=== PATIENT | female | born 1980 | race Caucasian/White ===

== ENCOUNTER 2020-08-11 18:37 | Emergency (ER) | payer MEDICAID, SELFPAY ==
[2020-08-11 18:38] VITALS: BP 125/85; PULSE 119; RESP 16; TEMP 36.7; O2SAT 99; BMI 19.0
--- NOTE | 2020-08-11 19:43 | CT_ITS ---
PROCEDURE: CT ABDOMEN PELVIS W CON CLINICAL INDICATION: abd pain Vomiting and abdominal pain COMPARISON: CT ABDPELW/O CT ABD PELVIS W/O CONTRAST from 09/14/2016 TECHNIQUE: IV Contrast: 75ML Isovue 370 Oral Contrast None Axial images obtained with sagittal and coronal reformats. All CT scans at the facility use one or more dose reduction, viz: automated exposure control, ma/kV adjustment per patient size (including targeted exams where dose is matched to indication, i.e. head), or iterative reconstruction technique. FINDINGS: LOWER THORAX: No acute finding ABDOMEN & PELVIS: The liver, spleen, adrenal glands, pancreas, and kidneys have an unremarkable appearance. No renal or ureteral calculi. No hydronephrosis. There is a moderate amount of retained colonic feces. Multiple unopacified bowel loops in the abdomen or pelvis which could obscure or mimic pathology. If symptoms persist, consider repeat exam with IV and oral contrast.. No evidence of appendicitis or diverticulitis. No evidence of intestinal obstruction or free air. There has been a prior hysterectomy. Tubal ligation clips are present. There is a tiny umbilical hernia containing fat. Stomach wall is thickened and could be due to nondistention or mild gastritis. No acute bony findings IMPRESSION: 1. Thickening of the gastric wall which could be due to nondistention versus gastritis. 2. Moderate amount of retained colonic feces. 3. Multiple unopacified bowel loops in the abdomen or pelvis which could obscure or mimic pathology. If symptoms persist, consider repeat exam with IV and oral contrast.. Dictated by: Rajiv Nelson MD 08/12/2020 06:05 Rajiv Nelson MD in [place] 08/12/2020 06:05
[2020-08-11 19:51] LABS: Basophils # 0.1 K/mm3 (0-0.2); Basophils % 0.7 % (0.1-2.0); Eosinophils # 0.1 K/mm3 (0.0-0.4); Eosinophils % 1.9 % (0.1-12.0); Hemoglobin 14.9 g/dL (12.2-16.2); Lymphocytes # 2.4 K/mm3 (0.7-4.5); Mean Corpuscular HGB Conc 33.1 g/dL (31.8-35.4); Mean Corpuscular Volume 96.6 fl (81-99); Mean Platelet Volume 9.1 fl (7.4-10.4); Monocytes # 0.3 K/mm3 (0.1-1.0); Monocytes % 4.6 % (1.7-9.3); Neutrophils # 4.4 K/mm3 (1.8-7.8); Neutrophils % 59.8 % (37.0-80.0); Platelet Count 211 K/mm3 (142-424); Red Blood Count 4.66 M/mm3 (4.20-5.40); Red Cell Distribution Width 12.8 % (11.5-17.5); White Blood Count 7.4 K/mm3 (4.8-10.8)
[2020-08-11 19:58] LABS: Chloride 102 mmol/L (98-107); Potassium 3.8 mmoL/L (3.5-5.1); Sodium 138 mmol/L (136-145)
[2020-08-11 20:00] LABS: Alanine Aminotransferase 106 U/L (12-78); Amylase 64 U/L (30-110); Aspartate Amino Transferase 75 U/L (14-36); Blood Urea Nitrogen 9 mg/dl (7-17); Creatinine Clearance Estimated 76 mL/min (50-200); Estimated Glomerular Filt Rate 62 ml/min (>60); GFR (African American) 75 ML/MIN (>60)
[2020-08-11 20:01] LABS: Albumin Level 4.7 g/dl (3.5-5.0); Albumin/Globulin Ratio 1.4 (1.1-1.8); Alkaline Phosphatase 70 U/L (38-126); Anion Gap 13.8 mEq/L (5-15); Bilirubin,Total 0.7 mg/dl (0.2-1.3); Calcium 9.6 mg/dl (8.4-10.2); Carbon Dioxide 26 mmol/L (22.0-30.0); Globulin 3.3 g/dL (1.3-3.2); Glucose 102 mg/dl (74-100); Lipase 95 U/L (23-300)
[2020-08-11 20:03] LABS: Microscopic, Urine URINE MICROSCOPIC (MICROSCOPIC)
[2020-08-11 20:06] LABS: C-Reactive Protein 0.5 mg/L (0-4)
[2020-08-11 20:13] LABS: Appearance,Urine CLEAR (Clear); Blood, Urine Negative (Negative); Color,Urine DK YELLOW (Yellow); Glucose,Urine (UA) Negative (Negative); Ketones,Urine Negative (Negative); Leukocyte Esterase,Urine Negative (Negative); Nitrate,Urine Negative (Negative); Protein,Urine Negative (Negative); Specific Gravity, Urine 1.025 (1.005-1.030); Urobilinogen,Urine 0.2 EU/dl (0.2)
[2020-08-11 20:16] LABS: Urine Pregnancy, HCG Qual. Negative (Negative)
[2020-08-11 20:19] LABS: Bilirubin,Urine Negative (Negative)
[2020-08-11 20:22] LABS: Bacteria,Urine 1+ /lpf; Mucus,Urine 2+ /lpf
[2020-08-11 20:26] LABS: Erythrocyte Sedimentation Rate 14 mm/hr (0-20)
--- NOTE | 2020-08-11 20:55 | HMH.EDNVD ---
ED Disposition Clinical Impression: Abdominal pain Qualifiers: Abdominal location: epigastric Qualified Code(s): R10.13 - Epigastric pain Disposition: Home, Self-Care Condition on Discharge: Good Instructions: DI for Abdominal Pain-Adult Additional Instructions: see pcp for more eval Referrals: Radha Peraza [Primary Care Provider] - Forms: Work/School Release - Critical Care Critical Care Time: No Attestation: On 08/11/20, the high probability of a clinically significant, sudden or life threatening deterioration of the following system(s) required my full and direct attention, intervention and personal management. The time I documented below is in addition to time spent performing reported procedures but includes the following listed in this critical care notation. Medical Decision Making - Medical Records Medical records reviewed: Yes: I reviewed the patient's medical records. - Gamaliel Inquiry Pt receiving controlled substance: No Vital Signs: 08/11/20 18:38 Temperature 98.1 F Temperature Source Oral Pulse Rate [Left Radial] 119 H Respiratory Rate 16 Blood Pressure [Right Arm] 125/85 Blood Pressure Mean [Right Arm] 98 Blood Pressure Source [Right Arm] Automatic Cuff Blood Pressure Position [Right Arm] Supine 02 Sat by Pulse Oximetry 99 Oxygen Delivery Method Room Air - Lab Data Lab results reviewed: Yes: I reviewed the patient's lab results. Lab Results 08/11/20 19:38: WBC 7.4, RBC 4.66, Hgb 14.9, Hct 45.0, MCV 96.6, MCH 32.0 H, MCHC 33.1, RDW 12.8, Plt Count 211, MPV 9.1, Neut % (Auto) 59.8, Lymph % (Auto) 33.0, [place] % (Auto) 4.6, Eos % (Auto) 1.9, Baso % (Auto) 0.7, Neut # (Auto) 4.4, Lymph # (Auto) 2.4, [place] # (Auto) 0.3, Eos # (Auto) 0.1, Baso # (Auto) 0.1, ESR 14 08/11/20 19:38: Sodium 138, Potassium 3.8, Chloride 102, Carbon Dioxide 26, Anion Gap 13.8, BUN 9, Creatinine 1.00, Estimated Creat Clear 76, Estimated GFR 62, Est GFR ( Amer) 75, Glucose 102 H, Calcium 9.6, Total Bilirubin 0.7, AST 75 H, ALT 106 H, Alkaline Phosphatase 70, C-Reactive Protein 0.5, Total Protein 8.0, Albumin 4.7, Globulin 3.3 H, Albumin/Globulin Ratio 1.4, Amylase 64, Lipase 95 08/11/20 19:50: Urine Color Dk yellow, Urine Appearance Clear, Urine pH 6.0, Ur Specific [place] 1.025, Urine Protein Negative, Urine Glucose (UA) Negative, Urine Ketones Negative, Urine Blood Negative, Urine Nitrate Negative, Urine Bilirubin Negative, Urine Urobilinogen 0.2, Ur Leukocyte Esterase Negative, Urine WBC 3-5, Ur Squamous Epith Cells 5-10, Urine Bacteria 1+, Urine Mucus 2+ 08/11/20 19:50: Urine HCG, Qual Negative Result diagrams: 08/11/20 19:38 08/11/20 19:38 Orders (Tests/Meds): ED MEDICATIONS Generic Name Dose Route Start Last Admin Trade Name Freq PRN Reason Stop Dose Admin Sodium Chloride 1,000 mls @ 999 mls/hr 08/11/20 19:45 08/11/20 19:57 Sod Chlor 0.9% 1000ml Bag IV 08/11/20 20:45 999 mls/hr .Q1H1M ZINA Administration Sodium Chloride 8 ml 08/11/20 19:43 Sodium Chloride 0.9% 10ml Vial IV 09/10/20 19:42 NEEDED PRN dilute pepcid Discontinued Medications Generic Name Dose Route Start Last Admin Trade Name Freq PRN Reason Stop Dose Admin Famotidine 20 mg 08/11/20 19:43 08/11/20 19:48 Famotidine 20mg/2ml Vial IV 08/11/20 19:44 20 mg ONCE ONE Administration Iopamidol 75 ml 08/11/20 20:19 08/11/20 20:21 Iopamidol-370 (76%);100ml Bottle IV 08/11/20 20:20 75 ml ONCE ONE Administration Ketorolac Tromethamine 30 mg 08/11/20 19:43 08/11/20 19:48 Ketorolac 30mg/Ml Vial IV 08/11/20 19:44 30 mg ONCE ONE Administration Metoclopramide HCl 10 mg 08/11/20 19:43 08/11/20 19:48 Metoclopramide Hcl 10mg/2ml Vial IVP 08/11/20 19:44 10 mg ONCE ONE Administration Morphine Sulfate 4 mg 08/11/20 20:56 08/11/20 21:05 Morphine 4mg/Ml Syringe IV 08/11/20 20:57 4 mg ONCE ONE Administration Ondansetron HCl 4 mg 08/11/20 19:43 08/11/20 19:48
[2020-08-11 20:56] LABS: Procalcitonin 0.052 ng/mL (0.0-2.0)
[2020-08-11 21:24] VITALS: BP 121/76; PULSE 101; RESP 16; TEMP 36.7; O2SAT 94
[2020-08-11 21:30] LABS: Coronavirus 19 IgG Antibody Negative (Negative); Coronavirus 19 IgM Antibody Negative (Negative)
== END 2020-08-11 21:32 | disposition home or self-care (01) ==
PROVIDERS: Emergency Medicine; Emergency Provider Emergency Medicine; PCP Emergency Medicine
DX: R10.13 Epigastric pain (principal); R53.1 Weakness; R42 Dizziness and giddiness; Z01.84 Encounter for antibody response examination
CPT/HCPCS: 74177; 80053; 81001; 81025; 82150; 83690; 84145; 85025; 85651; 86140; 86328; 96365; 96375; 99283; J2405; Q9967

== ENCOUNTER → 2020-08-13 12:05 | Outpatient (CLI) | payer MEDICAID, SELFPAY ==
--- NOTE | 2020-08-13 12:09 | US_ITS ---
PROCEDURE: US GALLBLADDER CLINICAL INDICATION: abdominal pain COMPARISON: No exams were available for comparison FINDINGS: Pancreas: Unremarkable/Not well seen Liver: Unremarkable. There is appropriate direction of blood flow within a non dilated portal vein. Right kidney: Unremarkable appearing. No hydronephrosis. Gallbladder: No stones are evident. There is no gallbladder wall thickening. Common duct is normal in diameter. IMPRESSION: Negative gallbladder ultrasound. No stones evident. Dictated by: Rajiv Nelson MD 08/13/2020 16:30 Rajiv Nelson MD in [place] 08/13/2020 16:30
== END ==
PROVIDERS: PCP Emergency Medicine; Visit Provider Emergency Medicine
DX: R10.9 Unspecified abdominal pain (principal)
CPT/HCPCS: 76705

== ENCOUNTER → 2020-09-08 08:28 | Outpatient (CLI) | payer MEDICAID, SELFPAY ==
--- NOTE | 2020-09-08 | CA_ITS ---
APPROVED REPORT Exam: Exercise Treadmill Technologist: Rosario San Ht: 6 ft 0 in Wt: 149 lbs BSA: 1.88 m2 HR: 64 bpm BP: 122/75 mmHg Indications: Chest pain Medical History Medications: Alprazolam,,,,, Gabapentin,,,,, BuPROPION,,,,, BuPRenorphinE,,,,, SuLFAMETHOXAZole-Trimethoprim,,,,, Stress Test Details Test: Keon HR Resting HR: 73 bpm Max Heart Rate (APMHR): 182 bpm Max HR Achieved: 153 bpm Target HR (85% APMHR): 154 bpm % of APMHR: 84 Recovery HR: 82 bpm BP Resting BP: 122.0/75.0 mmHg Max BP: 148.0/70.0 mmHg Recovery BP: 125.0/65.0 mmHg ECG Resting ECG: Normal sinus rhythm, rightward axis Clinical Exercise duration: 09:30 min Highest Stage Achieved: Exercise capacity: 10.1 METs Stress ECG Conclusion Patient exercised 9:30 on Keon Protocol. Test stopped due to shortness of air, fatigue. Symptoms: No chest pain. Arrhythmias/Ectopy: None ST-T Changes: 1-1.[address] depression inferiorly and 1 mm laterally. Conclusion: negative EKG changes. Myoview images reported separately. Test Summary REST . . . . . . . Standing REST 04:01 0.0 0.0 73 . 122/ 75 . . Stage 1 01:00 10.0 1.7 95 . . . . Stage 1 02:00 10.0 1.7 104 . . . . Stage 1 03:00 10.0 1.7 108 . 134/ 70 . . Stage 2 01:00 12.0 2.5 115 . . . . Stage 2 02:00 12.0 2.5 118 . . . . Stage 2 03:00 12.0 2.5 120 . 142/ 70 . . Stage 3 01:00 14.0 3.4 132 . . . . Stage 3 02:00 14.0 3.4 139 . 148/ 70 . . Stage 3 . . . . . . . Myoview Injected Stage 3 03:00 14.0 3.4 142 . 148/ 70 . . Stage 4 00:30 16.0 4.2 151 . . . Stop exercise at 09:30 RECOVERY 01:00 0.0 0.0 122 . 144/ 68 . . RECOVERY 02:00 0.0 0.0 105 . 144/ 68 . . RECOVERY 03:00 0.0 0.0 88 . 138/ 68 . . RECOVERY 04:00 0.0 0.0 82 . 138/ 68 . . RECOVERY 05:00 0.0 0.0 82 . 125/ 65 . . RECOVERY 05:18 0.0 0.0 80 . 125/ 65 . . Electronically signed by : Marcel Evans, 09/09/2020 10:43:48
--- NOTE | 2020-09-08 08:29 | NM_ITS ---
APPROVED REPORT Exam: Nuclear Stress Test Indication: Chest pain, Palpitations, Syncope, Tobacco use, Family history Patient Location: Outpatient Stress Tech: Rosario San OR Tech:Marleny Mac, ARRT, RT (R)(N) Ht: 6 ft 0 in Wt: 148 lbs Bra Size: 36B HR: 64 bpm BP: 122/75 mmHg BSA: 1.87 m2 History: Chest pain, Palpitations, Syncope, Tobacco use, Family history Procedure: Patient exercised on Keon protocol 9:30 minutes and sec, resting heart rate 64 bpm, resting blood pressure 122/75 mmHg, with exercise maximum heart rate achived was 153 bpm which is 84 % of the maximum predicted heart rate and blood pressure was 148/70 mmHg. Test was stopped due to SOA and fatigue. Patient denied any complaint of chest pain. Patient has Good exercise capacity, achieved 10.1 METs of workload on treadmill, the blood pressure response to exercise was Adequate. Electrocardiogram Resting electrocardiogram showed sinus rhythm, with exercise there is less than 1.[address] segment depression noted from the baseline EKG. The EKG portion of the exercise Myoview is nondiagnostic as patient did not achieve the target heart rate. Cardiac Stress and Resting SPECT Images: Cardiac Stress and Resting SPECT images were obtained using technetium 99m Myoview 29.7 mCi stress and 9.05 mCi at rest. Gated SPECT for analysis of segmental wall motion and calculation of the ejection fraction also done. Prone images were also obtained. Cardiac stress and resting SPECT images show uniform myocardial activity without segmental perfusion abnormality, computer derived ejection fraction is 46% with no regional wall motion abnormality, right ventricle is normal size and contractility. Conclusion: 1. The EKG portion of the exercise Myoview is nondiagnostic as patient did not achieve the target heart rate, patient has good exercise capacity achieved 10.1 mets of workload on treadmill, the blood pressure response to exercise was adequate, there was no exercise-induced chest discomfort. 2. No scintigraphic evidence of reversible ischemia seen at this level of exercise, computer derived ejection fraction is 46% with no regional wall motion abnormality, right ventricle is normal size and contractility. Electronically signed by : Marcel Evans, 09/09/2020 11:00:07
--- NOTE | 2020-09-08 09:58 | HMH.ITSHM ---
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 []GABAPENTIN SUBOXONE XANAX WELBUTRIN
== END ==
PROVIDERS: PCP Emergency Medicine; Visit Provider Emergency Medicine
DX: R07.9 Chest pain, unspecified (principal)
CPT/HCPCS: 78452; 93017; A9502

== ENCOUNTER 2021-04-26 16:01 | Emergency (ER) | payer MEDICAID, SELFPAY ==
[2021-04-26 19:33] VITALS: BP 0/0; PULSE 0; RESP 0; TEMP -17.7; TEMP 0
== END 2021-04-26 19:34 | disposition left against medical advice (07) ==
LOC: UTC 16:08
PROVIDERS: Emergency Provider Nurse Practitioner Family; PCP Emergency Medicine
DX: Z53.21 Procedure and treatment not carried out due to patient leaving prior to being seen by health care provider (principal)

== ENCOUNTER → 2021-04-29 15:28 | Outpatient (CLI) | payer MEDICAID, SELFPAY | PROVIDERS: PCP Emergency Medicine; Visit Provider Nurse Practitioner Family | DX: Z20.822 Contact with and (suspected) exposure to COVID-19 (principal) | CPT/HCPCS: U0003 ==

== ENCOUNTER → 2021-05-20 17:29 | Outpatient (CLI) | payer MEDICAID, SELFPAY | PROVIDERS: PCP Emergency Medicine; Visit Provider Nurse Practitioner | DX: Z20.822 Contact with and (suspected) exposure to COVID-19 (principal); U07.1 COVID-19 | CPT/HCPCS: C9803; U0003; U0005 ==

== ENCOUNTER → 2021-06-16 14:57 | Outpatient (CLI) | payer MEDICAID, SELFPAY ==
[2021-06-16 15:48] LABS: Basophils # 0.1 K/mm3 (0-0.2); Basophils % 1.1 % (0.1-2.0); Eosinophils # 0.2 K/mm3 (0.0-0.4); Eosinophils % 3.6 % (0.1-12.0); Hematocrit 40.8 % (37.0-47.0); Hemoglobin 13.5 g/dL (12.2-16.2); Lymphocytes # 2.7 K/mm3 (0.7-4.5); Lymphocytes % 43.9 % (10-50); Mean Corpuscular HGB Conc 33.1 g/dL (31.8-35.4); Mean Corpuscular Hemoglobin 31.9 pg (27.0-31.2); Mean Corpuscular Volume 96.6 fl (81-99); Mean Platelet Volume 10.1 fl (7.4-10.4); Monocytes # 0.3 K/mm3 (0.1-1.0); Neutrophils # 2.9 K/mm3 (1.8-7.8); Neutrophils % 47.4 % (37.0-80.0); Platelet Count 197 K/mm3 (142-424); Red Blood Count 4.23 M/mm3 (4.20-5.40); Red Cell Distribution Width 12.8 % (11.5-17.5); White Blood Count 6.1 K/mm3 (4.8-10.8)
[2021-06-16 15:54] LABS: INR 1.07 (0.9-1.1)
[2021-06-16 17:12] LABS: Alanine Aminotransferase 51 U/L (12-78); Albumin Level 4.3 g/dl (3.5-5.0); Albumin/Globulin Ratio 1.5 (1.1-1.8); Alkaline Phosphatase 58 U/L (38-126); Anion Gap 11.9 mEq/L (5-15); Aspartate Amino Transferase 46 U/L (14-36); Bilirubin,Total 0.7 mg/dl (0.2-1.3); Blood Urea Nitrogen 6 mg/dl (7-17); Calcium 9.3 mg/dl (8.4-10.2); Carbon Dioxide 27 mmol/L (22.0-30.0); Chloride 106 mmol/L (98-107); Estimated Glomerular Filt Rate 111 ml/min (>60); GFR (African American) 135 ML/MIN (>60); Globulin 2.9 g/dL (1.3-3.2); Glucose 104 mg/dl (74-100); Potassium 3.9 mmoL/L (3.5-5.1); Sodium 141 mmol/L (136-145); Total Protein,Serum 7.2 g/dl (6.3-8.2)
[2021-06-18 11:42] LABS: HIV Screen 4th Generation wRfx Non Reactive (Non Reactive); Hep A Ab, IgM Negative (Negative); Hep A Ab, Total Negative (Negative); Hep B Core Ab, Total Negative (Negative); Hep B Surface Ab, Qual Non Reactive (.); Hepatitis B Surface Antigen Negative (Negative); Hepatitis C Antibody >11.0 s/co ratio (0.0-0.9)
[2021-06-21 08:25] LABS: ALT (SGPT) P5P 54 IU/L (0-40); Alpha 2-Macroglobulins, Qn 236 mg/dL (110-276); Apolipoprotein A-1 133 mg/dL (116-209); Bilirubin, Total 0.5 mg/dL (0.0-1.2); Fibrosis Score 0.16 (0.00-0.21); GGT 13 IU/L (0-60); Haptoglobin 110 mg/dL (33-278); Necroinflammat Activity Grade A0-A1 (.); Necroinflammat Activity Score 0.27 (0.00-0.17)
[2021-06-22 11:46] LABS: HCV Genotype Charge YES; Hepatitis C Genotype 1a (.)
== END ==
PROVIDERS: Visit Provider Nurse Practitioner Family
DX: B18.2 Chronic viral hepatitis C (principal); Z11.4 Encounter for screening for human immunodeficiency virus [HIV]
CPT/HCPCS: 36415; 80053; 81596; 85025; 85610; 86703; 86704; 86706; 86708; 87340; 87380; 87522; 87902; G0432

== ENCOUNTER 2021-09-12 15:32 | Emergency (ER) | payer MEDICAID, SELFPAY ==
[2021-09-12] VITALS (8 sets, daily range): BP systolic 113–158; BP diastolic 74–103; PULSE 106–128; RESP 14–23; TEMP 36.8; O2SAT 97–100
--- NOTE | 2021-09-12 15:42 | ECG_ITS ---
APPROVED REPORT Exam: Resting ECG HR:121 bpm ECG Measurements Heart Rate 121 AXES WY 154 P 77 QRSd 80 QRS 86 QT 326 T 74 QTc 462 Conclusion Sinus tachycardia Biatrial enlargement Poor r wave progression Abnormal ECG Electronically signed by : Servando Lauren MD 09/15/2021 13:48:46
--- NOTE | 2021-09-12 15:55 | XR_ITS ---
FINAL REPORT CLINICAL HISTORY: cough, patient states her systolic blood pressure was in the 150 range and her family Doctor Alejandra sent her to our er. FINDINGS: The heart size is normal. The mediastinum is normal. There is no focal infiltrate or edema. There are no pleural effusions. There is no pneumothorax. There is no osseous abnormality. IMPRESSION: No acute cardiopulmonary process Reviewed, Interpreted and Dictated by Geronimo Quiros III, MD Transcribed by Otis Alfonso Authenticated by Geronimo Quiros III, MD on 09/12/2021 04:49:30 PM [facility]
[2021-09-12 16:06] LABS: Basophils # 0.1 K/mm3 (0-0.2); Basophils % 1.6 % (0.1-2.0); Eosinophils % 0.6 % (0.1-12.0); Hematocrit 39.9 % (37.0-47.0); Hemoglobin 13.3 g/dL (12.2-16.2); Lymphocytes # 2.5 K/mm3 (0.7-4.5); Lymphocytes % 36.1 % (10-50); Mean Corpuscular HGB Conc 33.4 g/dL (31.8-35.4); Mean Corpuscular Hemoglobin 32.1 pg (27.0-31.2); Mean Corpuscular Volume 95.8 fl (81-99); Mean Platelet Volume 9.9 fl (7.4-10.4); Monocytes # 0.4 K/mm3 (0.1-1.0); Monocytes % 5.2 % (1.7-9.3); Neutrophils # 3.8 K/mm3 (1.8-7.8); Neutrophils % 56.5 % (37.0-80.0); Platelet Count 181 K/mm3 (142-424); Red Blood Count 4.16 M/mm3 (4.20-5.40); White Blood Count 6.8 K/mm3 (4.8-10.8)
--- NOTE | 2021-09-12 16:07 | HMH.EDGENADL ---
ED Disposition Clinical Impression: Palpitations, Anxiety Disposition: Home, Self-Care Condition on Discharge: Good Instructions: DI for Palpitations Referrals: Malachi Hutchins APRN [Primary Care Provider] - - Critical Care Critical Care Time: No Attestation: On 09/12/21, the high probability of a clinically significant, sudden or life threatening deterioration of the following system(s) required my full and direct attention, intervention and personal management. The time I documented below is in addition to time spent performing reported procedures but includes the following listed in this critical care notation. Medical Decision Making - Medical Records Medical records reviewed: Yes: I reviewed the patient's medical records. - Gamaliel Inquiry Pt receiving controlled substance: No Vital Signs: 09/12/21 15:51 09/12/21 16:00 Temperature 98.2 F Temperature Source Oral Pulse Rate 122 H Pulse Rate [Left Radial] 128 H Respiratory Rate 17 14 Blood Pressure 124/92 H Blood Pressure [Right Arm] 147/100 H Blood Pressure Mean [Right Arm] 115 02 Sat by Pulse Oximetry 100 98 Oxygen Delivery Method Room Air - Lab Data Lab Results 09/12/21 15:48: WBC 6.8, RBC 4.16 L, Hgb 13.3, Hct 39.9, MCV 95.8, MCH 32.1 H, MCHC 33.4, RDW 13.0, Plt Count 181, MPV 9.9, Neut % (Auto) 56.5, Lymph % (Auto) 36.1, [place] % (Auto) 5.2, Eos % (Auto) 0.6, Baso % (Auto) 1.6, Neut # (Auto) 3.8, Lymph # (Auto) 2.5, [place] # (Auto) 0.4, Eos # (Auto) 0.0, Baso # (Auto) 0.1 09/12/21 15:55: Sodium 137, Potassium 3.3 L, Chloride 102, Carbon Dioxide 25, Anion Gap 13.3, BUN 16, Creatinine 0.90, Estimated Creat Clear 89, Estimated GFR 70, Est GFR ( Amer) 84, Glucose 111 H, Calcium 9.5, Total Bilirubin 0.6, AST 70 H, ALT 104 H, Alkaline Phosphatase 67, Troponin I < 0.01, NT-Pro-B Natriuret Pep 424 H, Total Protein 8.2, Albumin 4.9, Globulin 3.3 H, Albumin/Globulin Ratio 1.5 Result diagrams: 09/12/21 15:48 09/12/21 15:55 Orders (Tests/Meds): ED MEDICATIONS Generic Name Dose Route Start Last Admin Trade Name Freq PRN Reason Stop Dose Admin Sodium Chloride 10 ml 09/12/21 15:55 Sodium Chloride 0.9% 10ml Vial IV 10/12/21 15:54 NEEDED PRN to Dilute Lorazepam inj Discontinued Medications Generic Name Dose Route Start Last Admin Trade Name Freq PRN Reason Stop Dose Admin Sodium Chloride 1,000 mls @ 999 mls/hr 09/12/21 16:00 09/12/21 16:07 Sod Chlor 0.9% 1000ml Bag IV 09/12/21 17:00 999 mls/hr .Q1H1M ZINA Administration Labetalol HCl 10 mg 09/12/21 17:04 Labetalol 5mg/Ml 20ml Mdv IV 09/12/21 17:05 ONCE ONE Lorazepam 1 mg 09/12/21 15:55 09/12/21 16:07 Lorazepam 2mg/Ml Vial IV 09/12/21 15:56 1 mg ONCE ONE Administration ORDERS Category Date Time Status Troponin I Q3H Lab 09/12/21 19:00 Ordered Troponin I Q3H Lab 09/12/21 22:00 Ordered - Radiology Data #1 Image(s): Chest Image Reviewed: Yes I reviewed the patient's radiology results, Yes I reviewed the patient's radiology image, Yes I have reviewed radiologist's interpretation Preliminary Findings: Normal/NAD - ECG Data Tracing #1 I reviewed this ECG and interpreted as documented below: No ventricular rate of 121 bpm, MO interval 154 ms, normal QTC. Sinus tachycardia with nonspecific changes. ECG initial impression date: 09/12/21 ECG initial impression time: 15:42 - Reevaluation(s) Time: 17:27 Reevaluation #1: On reevaluation, patient's hemodynamics have improved. She is feeling much better. Work-up is benign. Patient will follow up with cardiology as previously prescribed. Given strict return precautions. Verbalized understanding. Medical Decision Narrative: 41-year-old female presented with some elevated heart rate. Other than that, the patient is asymptomatic. Neurologic exam appears normal. I do believe is consistent with sinus tachycardia. Work-up will be initiated. General Adult H
--- NOTE | 2021-09-12 16:09 | PC.NURSE ---
rad at bedside
[2021-09-12 16:26] LABS: Chloride 102 mmol/L (98-107); Potassium 3.3 mmoL/L (3.5-5.1); Sodium 137 mmol/L (136-145)
[2021-09-12 16:29] LABS: Alanine Aminotransferase 104 U/L (12-78); Albumin Level 4.9 g/dl (3.5-5.0); Albumin/Globulin Ratio 1.5 (1.1-1.8); Alkaline Phosphatase 67 U/L (38-126); Aspartate Amino Transferase 70 U/L (14-36); Bilirubin,Total 0.6 mg/dl (0.2-1.3); Blood Urea Nitrogen 16 mg/dl (7-17); Calcium 9.5 mg/dl (8.4-10.2); Carbon Dioxide 25 mmol/L (22.0-30.0); Creatinine Clearance Estimated 89 mL/min (50-200); Estimated Glomerular Filt Rate 70 ml/min (>60); GFR (African American) 84 ML/MIN (>60); Globulin 3.3 g/dL (1.3-3.2); Glucose 111 mg/dl (74-100); Total Protein,Serum 8.2 g/dl (6.3-8.2)
[2021-09-12 16:30] LABS: Anion Gap 13.3 mEq/L (5-15)
[2021-09-12 16:38] LABS: NT Pro Brain Natriuretic Pep. 424 pg/mL (0-125)
[2021-09-12 16:43] LABS: Troponin I < 0.01 ng/ml (0.00-0.034)
== END 2021-09-12 18:02 | disposition home or self-care (01) ==
PROVIDERS: Emergency Provider Emergency Medicine; PCP Nurse Practitioner Family
DX: R00.0 Tachycardia, unspecified; F17.200 Nicotine dependence, unspecified, uncomplicated; R53.1 Weakness
CPT/HCPCS: 71045; 80053; 83880; 84484; 85025; 93005; 96365; 96375; 99282

== ENCOUNTER → 2021-09-12 18:22 | Outpatient (CLI) | payer MEDICAID, SELFPAY | PROVIDERS: Visit Provider Family Medicine | DX: R30.0 Dysuria (principal) | CPT/HCPCS: 87086; 87088; 87186 ==

== ENCOUNTER → 2022-03-14 12:12 | Outpatient (CLI) | payer MEDICAID, SELFPAY ==
[2022-03-14 18:30] LABS: Basophils # 0.1 K/mm3 (0-0.2); Basophils % 1.2 % (0.1-2.0); Eosinophils # 0.3 K/mm3 (0.0-0.4); Eosinophils % 4.5 % (0.1-12.0); Hematocrit 37.6 % (37.0-47.0); Hemoglobin 12.1 g/dL (12.2-16.2); Lymphocytes # 2.3 K/mm3 (0.7-4.5); Lymphocytes % 41.2 % (10-50); Mean Corpuscular HGB Conc 32.2 g/dL (31.8-35.4); Mean Corpuscular Hemoglobin 31.7 pg (27.0-31.2); Mean Corpuscular Volume 98.4 fl (81-99); Mean Platelet Volume 10.5 fl (7.4-10.4); Monocytes # 0.3 K/mm3 (0.1-1.0); Monocytes % 5.6 % (1.7-9.3); Neutrophils # 2.6 K/mm3 (1.8-7.8); Neutrophils % 47.4 % (37.0-80.0); Platelet Count 178 K/mm3 (142-424); Red Blood Count 3.82 M/mm3 (4.20-5.40); White Blood Count 5.5 K/mm3 (4.8-10.8)
[2022-03-14 18:49] LABS: Alanine Aminotransferase 12 U/L (12-78); Albumin Level 4.3 g/dl (3.5-5.0); Albumin/Globulin Ratio 1.6 (1.1-1.8); Alkaline Phosphatase 48 U/L (38-126); Anion Gap 12.7 mEq/L (5-15); Aspartate Amino Transferase 21 U/L (14-36); Bilirubin,Total 0.2 mg/dl (0.2-1.3); Blood Urea Nitrogen 19 mg/dl (7-17); Calcium 9.3 mg/dl (8.4-10.2); Carbon Dioxide 25 mmol/L (22.0-30.0); Chloride 105 mmol/L (98-107); Estimated Glomerular Filt Rate 50 ml/min (>60); GFR (African American) 60 ML/MIN (>60); Globulin 2.7 g/dL (1.3-3.2); Glucose 103 mg/dl (74-100); Potassium 4.7 mmoL/L (3.5-5.1); Sodium 138 mmol/L (136-145)
[2022-03-16 11:12] LABS: Hepatitis C Antibody >11.0 s/co ratio (0.0-0.9)
== END ==
PROVIDERS: PCP Nurse Practitioner Family; Visit Provider Nurse Practitioner Family
DX: B18.2 Chronic viral hepatitis C (principal)
CPT/HCPCS: 80053; 85025; 87380; 87522

== ENCOUNTER → 2022-06-09 15:15 | Outpatient (CLI) | payer MEDICAID, SELFPAY | PROVIDERS: PCP Nurse Practitioner Family; Visit Provider Nurse Practitioner Family | DX: L02.91 Cutaneous abscess, unspecified (principal); B95.7 Other staphylococcus as the cause of diseases classified elsewhere | CPT/HCPCS: 87070; 87077; 87186; 87205 ==